=== PATIENT | male | born 1995 | race Caucasian/White ===

== ENCOUNTER 2017-01-12 09:38 | Emergency (ER) | payer OTHER ==
[2017-01-12 09:44] VITALS: BP 158/78; PULSE 103; TEMP 97; O2SAT 99
[2017-01-12 10:00] VITALS: RESP 19
--- NOTE | 2017-01-12 10:34 | ED PDOC ---
HPI: General Adult Time Seen by Provider: 01/12/17 10:20 Chief Complaint (Nursing): Abnormal Skin Integrity Chief Complaint (Provider): abcess History Per: Patient History/Exam Limitations: no limitations Additional Complaint(s): 21yo M in ED for eval of abscess located around his anus growing in size/pain x 4d without associated drainage, fever, chills, nausea or vomiting. Pt denies hx of similar. denies hx of constipation or blood stool. pt denies abd pain, hematuira or dysuiria. Past Medical History Reviewed: Historical Data, Nursing Documentation, Vital Signs Vital Signs: Last Vital Signs Temp 97 F L 01/12/17 09:58 Pulse 103 H 01/12/17 09:58 Resp 19 01/12/17 09:58 BP 158/78 H 01/12/17 09:58 Pulse Ox 99 01/12/17 10:48 - Medical History PMH: No Chronic Diseases - Family History Family History: States: No Known Family Hx - Home Medications Home Medications: Ambulatory Orders Medication Instructions Recorded Cephalexin [cephalexin] 500 mg PO BID #20 cap 01/12/17 Clindamycin [Cleocin] 300 mg PO TID #30 cap 01/12/17 Ketorolac Tromethamine [Toradol] 10 mg PO TID #20 cap 01/12/17 - Allergies Allergies/Adverse Reactions: Allergies Allergy/AdvReac Type Severity Reaction Status Date / Time No Known Allergies Allergy Verified 01/12/17 09:57 Review of Systems ROS Statement: Except As Marked, All Systems Reviewed And Found Negative Gastrointestinal: Positive for: Rectal Pain Physical Exam - Reviewed Nursing Documentation Reviewed: Yes Vital Signs Reviewed: Yes - Physical Exam Appears: Positive for: Non-toxic, No Acute Distress, Uncomfortable Head Exam: Positive for: ATRAUMATIC, NORMAL INSPECTION, NORMOCEPHALIC Skin: Positive for: Normal Color, Warm Cardiovascular/Chest: Positive for: Regular Rate, Rhythm Respiratory: Positive for: CNT, Normal Breath Sounds Gastrointestinal/Abdominal: Positive for: Normal Exam, Bowel Sounds, Soft. Negative for: Tenderness Rectal: Positive for: Other (rectal area: located with right of anus: 2x4 indurated, tender, warm lesions with associated streaking noted. ? tracking into rectum) Extremity: Positive for: Normal ROM Neurologic/Psych: Positive for: Alert, Oriented - Laboratory Results Result Diagrams: 01/12/17 11:08 01/12/17 11:08 - ECG O2 Sat by Pulse Oximetry: 99 - Progress ED Course And Treament: will do a CT pelvis with IV contrast, IV torodol, cbc/cmp./blood cx Medical Decision Making Medical Decision Making: Ct results shows no further involvement of internal organs. PT given IV abx in ED and will be ad/c with PO abx advised to f.u with PMD or surgeon for drainage of abscess, however if unable to, to return to ED when lesion is softer for drainage. Disposition - Clinical Impression Clinical Impression: Abscess - Patient ED Disposition Is Patient to be Admitted: No Counseled Patient/Family Regarding: Need For Followup, Rx Given - Disposition Referrals: [facility] [Outside] [facility] [Outside] Disposition: Routine/Home Disposition Time: 13:42 Condition: STABLE Prescriptions: Cephalexin [cephalexin] 500 mg PO BID #20 cap Clindamycin [Cleocin] 300 mg PO TID #30 cap Ketorolac Tromethamine [Toradol] 10 mg PO TID #20 cap Instructions: Abscess (ED) Forms: [employer] ([place])
[2017-01-12 11:15] LABS: BASO % 0.1 % (0.0-2.0); EOS % 0.3 % (0.0-4.0); HEMATOCRIT 44.9 % (35.0-51.0); LYMPH # 1.1 K/uL (1.0-4.3); LYMPH % 17.9 % (20.0-40.0); MEAN CELL VOLUME 91.5 fl (80.0-94.0); MEAN CORPUSCULAR HEMOGLOBIN 31.2 pg (27.0-31.0); MEAN CORPUSCULAR HGB CONC 34.1 g/dL (33.0-37.0); MEAN PLATELET VOLUME 8.5 fl (7.2-11.7); MONO # 0.5 K/uL (0.0-0.8); MONO % 8.1 % (0.0-10.0); NEUT # 4.5 K/uL (1.8-7.0); NEUT % 73.6 % (50.0-75.0); NRBC % 0.1 % (0.0-0.0); RED CELL DISTRIBUTION WIDTH 13.1 % (11.5-14.5); WHITE BLOOD COUNT 6.2 K/uL (4.8-10.8)
[2017-01-12 11:23] LABS: ALB/GLOB RATIO 1.6 (1.0-2.1); ALKALINE PHOSPHATASE 47 U/L (38-126); ALT/SGPT 29 U/L (21-72); AST/SGOT 20 U/L (17-59); BLOOD UREA NITROGEN 12 mg/dl (9-20); CALCIUM 9.5 mg/dL (8.4-10.2); CARBON DIOXIDE 24 mmol/L (22-30); CHLORIDE 103 mmol/L (98-107); GFR AFRICAN-AMERICAN > 60; GLUCOSE,RANDOM 89 mg/dL (75-110); POTASSIUM 4.1 MMOL/L (3.6-5.0); SODIUM 140 mmol/l (132-148); TOTAL PROTEIN 7.6 G/DL (6.3-8.2)
[2017-01-12] MEDS ORDERED: Iohexol 300 100 ML IJ ONE (12:23)
[2017-01-12] MEDS ORDERED: Sodium Chloride 0.9% 50 ML IV ONE (12:24)
--- NOTE | 2017-01-12 13:36 | CT ---
PROCEDURE: CT Pelvis with contrast HISTORY: abscess with ? tracking into anus COMPARISON: None. TECHNIQUE: Contiguous axial images of the pelvis with contrast. Coronal and sagittal reformats generated. Contrast dose: Omnipaque 300, 95 cc Radiation dose: Total exam DLP = 336 mGy-cm. This CT exam was performed using one or more of the following dose reduction techniques: Automated exposure control, adjustment of the mA and/or kV according to patient size, and/or use of iterative reconstruction technique. FINDINGS: BLADDER: No definite mass, however the the urinary bladder is nonopacified and is nearly completely decompressed. REPRODUCTIVE ORGANS: Mildly prominent seminal vesicles are identified without focal mass grossly evident. VISUALIZED BOWEL: The lack of oral contrast limits evaluation of the bowel loops in the pelvis. Relatively prominent amount of stool is seen in a central bowel loop which is presumed large-bowel but is poorly evaluated due to lack of oral contrast. Solid-appearing fecal material is questioned in a few small bowel loops with the etiology indeterminate. PERITONEUM: No definite abscess is identified. No free air or ascites is seen either. LYMPH NODES: Unremarkable. No enlarged lymph nodes. VASCULATURE: Unremarkable. BONES: No fracture or focal lesion. OTHER FINDINGS: None. IMPRESSION: 1. No definite abscess identified. The lack of oral contrast limits evaluation of bowel loops in the pelvis. 2. Solid appearing fecal material is questioned in a few small bowel loops in the right hemipelvis with the etiology of this finding indeterminate. The bowel can be better evaluated following oral contrast administration in a full abdomen and pelvis CT exam. Clinically correlate.
== END 2017-01-12 14:02 | disposition home or self-care (01) ==
LOC: H.ER 09:38
DX: K61.1 Rectal abscess (principal)
CPT/HCPCS: 72193; 80053; 85025; 87040; 87086; 96374; 99283; J1885; Q9967